=== PATIENT | female | born 1985 | race Hispanic/Latino ===

== ENCOUNTER 2018-11-14 10:45 | Inpatient (IN) | payer SELFPAY ==
[2018-11-14 11:04] LABS: Arterial Blood Carboxyhemoglob 0.4 % (0-1.5); Blood Gas Oxyhemoglobin 92.5 % (94-97); Blood O2 Saturation 93.7 % (92-98.5)
[2018-11-14] MEDS ORDERED: LEVALBUTEROL 1.25 MG/3 ML NEB ONE (11:12)
--- NOTE | 2018-11-14 11:28 | RAD REPORT ---
EXAM DESCRIPTION: Bryce Single View11/14/2018 11:10 am CLINICAL HISTORY: cough COMPARISON: none FINDINGS: Mild bilateral pulmonary opacities. The heart is normal size IMPRESSION: Mild bilateral pulmonary opacities consistent with pulmonary edema or aspiration
--- NOTE | 2018-11-14 11:44 | RAD REPORT ---
EXAM DESCRIPTION: CT - Head Brain Wo Cont - 11/14/2018 11:15 am CLINICAL HISTORY: Unconscious COMPARISON: None. TECHNIQUE: Computed axial tomography of the head was obtained. IV contrast was not requested. All CT scans are performed using dose optimization technique as appropriate and may include automated exposure control or mA/KV adjustment according to patient size. FINDINGS: An intracranial bleed is not seen . The ventricles are normal in caliber. No extra-axial fluid collection is noted. Fluid within the left maxillary sinus may indicate acute sinusitis IMPRESSION: No acute intracranial abnormality is seen. If patient's symptoms persist MRI of the bra in would be recommended.
[2018-11-14 12:11] LABS: Potassium 3.7 mmol/L (3.5-5.1)
[2018-11-14 12:13] LABS: Absolute Lymphocytes (CBC) 2.8 K/uL (0.7-4.9); Absolute Monocytes 0.8 K/uL (0.1-1.3); Absolute Neutrophil 11.4 K/uL (1.8-8.0); Basophils % 0.6 % (0-1.3); Eosinophils % 1.5 % (0-4.4); Hematocrit 41.4 % (36.0-45.0); Lymphocytes % 18.3 % (15.3-44.8); MPV 7.5 fL (7.6-11.3); Monocytes % 5.2 % (3.3-12.3); RBC Red Blood Cell Count 4.21 M/uL (3.86-4.86)
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
[2018-11-14] MEDS ORDERED: NA CHLORIDE 0.9% 1,000 ML ONE (13:08)
[2018-11-14] MEDS ORDERED: ONDANSETRON 4 MG/2 ML VIAL IV PRN (14:55)
[2018-11-14] MEDS: PIPER/TAZO/NS 3.375gm 3.375 GM/100 ML BAG IVPB SCH ×2 (15:09→20:50)
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
[2018-11-14] MEDS: ENOXAPARIN 40 MG/0.4 ML SQ SCH (17:44)
[2018-11-14] MEDS: ALBUTEROL 2.5 MG/3 ML NEB SOL NEB SCH (19:40)
[2018-11-14] MEDS: IPRATROPIUM BROM 0.5MG/2.5ML NEB SCH (19:40)
[2018-11-14] MEDS ORDERED: KCL 20 MEQ/100 mL IVPB 20 MEQ/100 ML BAG IV SCH (20:00)
[2018-11-14] MEDS ORDERED: PIPERACIL/TAZO 3.375 GM VIAL IV ONE (20:52)
[2018-11-14] MEDS ORDERED: NA CHLORIDE 0.9% 100 ML ONE (20:53)
[2018-11-14] MEDS ORDERED: HYDROCODONE/APAP 10/325 TAB PO PRN (21:48)
[2018-11-14] MEDS: FUROSEMIDE 20 MG/ 2ML VIAL IV SCH (22:08)
[2018-11-15 00:35] LABS: Urine Appearance CLEAR; Urine Bilirubin NEGATIVE (NEG); Urine Blood 1+ (NEG); Urine Color YELLOW; Urine Glucose NEGATIVE (NEG); Urine Protein NEGATIVE (NEG); Urine Urobilinogen 0.2 mg/dL (0.2-1.0)
[2018-11-15 01:10] LABS: Urine Bacteria <20 /HPF (<20); Urine Culture Reflex Order NOT NEEDED; Urine RBC <5 /HPF (NONE SEEN)
[2018-11-15] MEDS: IPRATROPIUM BROM 0.5MG/2.5ML NEB SCH ×4 (02:00→20:05)
[2018-11-15] MEDS: ALBUTEROL 2.5 MG/3 ML NEB SOL NEB SCH ×4 (02:00→20:05)
[2018-11-15 05:33] LABS: Absolute Lymphocytes (CBC) 2.3 K/uL (0.7-4.9); Absolute Monocytes 1.3 K/uL (0.1-1.3); Absolute Neutrophil 18.1 K/uL (1.8-8.0); Basophils % 0.4 % (0-1.3); Eosinophils % 0.1 % (0-4.4); Hematocrit 36.8 % (36.0-45.0); Lymphocytes % 10.7 % (15.3-44.8); MPV 7.3 fL (7.6-11.3); Monocytes % 6.1 % (3.3-12.3); RBC Red Blood Cell Count 3.72 M/uL (3.86-4.86)
[2018-11-15 05:49] LABS: ALT/SGPT 32 U/L (12-78); AST/SGOT 25 U/L (15-37); Albumin 3.6 g/dL (3.4-5.0); Alkaline Phosphatase 84 U/L (45-117); BUN Blood Urea Nitrogen 14 mg/dL (7-18); Bicarbonate 26 mmol/L (21-32); Bilirubin Total 0.9 mg/dL (0.2-1.0); Glucose Level 135 mg/dL (74-106); Magnesium 2.2 mg/dL (1.8-2.4); Phosphorus 3.4 mg/dL (2.5-4.9); Potassium 3.7 mmol/L (3.5-5.1); Protein, Total 7.9 g/dL (6.4-8.2); Sodium Level 138 mmol/L (136-145)
[2018-11-15] MEDS ORDERED: KCL 20 MEQ/100 mL IVPB 20 MEQ/100 ML BAG IV SCH (06:00)
[2018-11-15] MEDS ORDERED: PIPER/TAZO/NS 3.375gm 3.375 GM/100 ML BAG IVPB SCH (06:00)
[2018-11-15 06:09] LABS: Blood Morphology Comment NOT SEEN (NOT SEEN); Platelet Estimate ADEQ
--- NOTE | 2018-11-15 08:01 | RAD REPORT ---
EXAM DESCRIPTION: Bryce Single View11/15/2018 6:53 am CLINICAL HISTORY: Chest pain COMPARISON: November 14, 2018 FINDINGS: Mild to moderate bilateral pulmonary opacities appear worsened since the prior exam The heart is normal size IMPRESSION: [id number] pulmonary opacities may represent pulmonary edema or aspiration
[2018-11-15] MEDS: PIPER/TAZO/NS 3.375gm 3.375 GM/100 ML BAG IVPB SCH ×2 (08:12→17:36)
[2018-11-15] MEDS: FUROSEMIDE 20 MG/ 2ML VIAL IV SCH (08:13)
[2018-11-15] MEDS: PANTOPRAZOLE 40MG TABLET PO SCH (08:14)
[2018-11-15] MEDS: ENOXAPARIN 40 MG/0.4 ML SQ SCH (08:15)
[2018-11-15] MEDS ORDERED: POTASSIUM 25 MEQ EFFERV TAB PO ONE (09:00)
--- NOTE | 2018-11-15 09:05 | EKG ---
Test Date: 2018-11-14 Test Time: 11:19:24 Traveling Electrician: NOEMI MEASUREMENT RESULTS: Intervals: Rate: 100 MO: 138 QRSD: 86 QT: 350 QTc: 451 [place]: P: 49 MO: 138 QRS: 54 T: 40 INTERPRETIVE STATEMENTS: Normal sinus rhythm Normal ECG No previous ECG available for comparison Electronically Signed On 11-15-18 09:01:12 CDT by Claude Dash
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
--- NOTE | 2018-11-15 09:55 | RAD REPORT ---
EXAM DESCRIPTION: Bryce Pa And Lat (2 Views)11/15/2018 9:48 am CLINICAL HISTORY: Cough COMPARISON: November 15, 2018 FINDINGS: Bilateral pulmonary opacities appear slightly worsened. Moderate right and [id number] left pulmonary opacities The heart is normal size IMPRESSION: Slight worsening in the bilateral pulmonary opacities which may represent aspiration or pulmonary edema
[2018-11-15] MEDS ORDERED: FUROSEMIDE 20 MG/ 2ML VIAL IV ONE (11:34)
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
[2018-11-16] MEDS: PIPER/TAZO/NS 3.375gm 3.375 GM/100 ML BAG IVPB SCH ×2 (00:06→08:35)
[2018-11-16] MEDS: IPRATROPIUM BROM 0.5MG/2.5ML NEB SCH ×2 (01:35→08:00)
[2018-11-16] MEDS: ALBUTEROL 2.5 MG/3 ML NEB SOL NEB SCH ×2 (01:35→08:00)
[2018-11-16 05:34] LABS: Absolute Lymphocytes (CBC) 2.4 K/uL (0.7-4.9); Absolute Monocytes 0.9 K/uL (0.1-1.3); Absolute Neutrophil 11.6 K/uL (1.8-8.0); Basophils % 0.5 % (0-1.3); Eosinophils % 2.8 % (0-4.4); Hematocrit 35.7 % (36.0-45.0); Lymphocytes % 15.5 % (15.3-44.8); MPV 7.4 fL (7.6-11.3); RBC Red Blood Cell Count 3.63 M/uL (3.86-4.86)
[2018-11-16 05:50] LABS: Albumin 3.3 g/dL (3.4-5.0); Bilirubin Total 0.8 mg/dL (0.2-1.0); Magnesium 2.2 mg/dL (1.8-2.4); Phosphorus 2.9 mg/dL (2.5-4.9); Potassium 4.1 mmol/L (3.5-5.1); Protein, Total 7.7 g/dL (6.4-8.2)
[2018-11-16] MEDS: PANTOPRAZOLE 40MG TABLET PO SCH (08:35)
[2018-11-16] MEDS: ENOXAPARIN 40 MG/0.4 ML SQ SCH (08:35)
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
[2018-11-16 13:45] VITALS: BMI 29.8
[2018-11-16] MEDS: AMOX/K CLAV 500 MG TAB PO SCH (20:16)
[2018-11-17 06:51] LABS: Absolute Lymphocytes (CBC) 2.3 K/uL (0.7-4.9); Absolute Monocytes 0.8 K/uL (0.1-1.3); Absolute Neutrophil 8.9 K/uL (1.8-8.0); Basophils % 0.7 % (0-1.3); Lymphocytes % 17.7 % (15.3-44.8); MPV 7.6 fL (7.6-11.3); Monocytes % 6.1 % (3.3-12.3); RBC Red Blood Cell Count 3.78 M/uL (3.86-4.86)
[2018-11-17 07:10] LABS: Albumin 3.4 g/dL (3.4-5.0); Bilirubin Total 0.5 mg/dL (0.2-1.0); Potassium 3.8 mmol/L (3.5-5.1); Protein, Total 8.2 g/dL (6.4-8.2)
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
[2018-11-17] MEDS: ENOXAPARIN 40 MG/0.4 ML SQ SCH (08:15)
[2018-11-17] MEDS: PANTOPRAZOLE 40MG TABLET PO SCH (08:16)
[2018-11-17] MEDS: AMOX/K CLAV 500 MG TAB PO SCH (08:17)
[2018-11-17] MEDS ORDERED: POTASSIUM 25 MEQ EFFERV TAB PO ONE (09:00)
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
[2018-11-17 09:57] VITALS: O2SAT 98
[2018-11-17 13:46] VITALS: BP 114/62; TEMP 97.8
== END 2018-11-17 12:11 | disposition home or self-care (01) | DRG 178 ==
LOC: ER 10:45 → ERHOLD 12:21 → 3RD-ICU 14:45 → 2ND 11-16 14:26
PROVIDERS: ADMIT Family Medicine; ATTEND Family Medicine
PROC: 5A09457 Assistance with Respiratory Ventilation, 24-96 Consecutive Hours, Continuous Positive Airway Pressure (ICD-10-PCS; principal; 2018-11-14)
DX: J69.8 Pneumonitis due to inhalation of other solids and liquids (principal); E87.2 Acidosis; R06.03 Acute respiratory distress; W69.XXXA Accidental drowning and submersion while in natural water, initial encounter; Y93.11 Activity, swimming; Y92.832 Beach as the place of occurrence of the external cause
CPT/HCPCS: 36415; 70450; 71045; 71046; 80048; 80053; 81001; 82805; 83735; 84100; 85025; 87040; 87070; 87205; 93005; 94660; 94760; 96360; 99285; J1650; J1940; J2543; J7030